=== PATIENT | male | born 1995 | race Hispanic/Latino ===

== ENCOUNTER 2022-04-07 18:51 | Emergency (ER) | payer OTHER ==
[~2022-04-07] VITALS: Ht 152.4 cm; Wt 81.6 kg
[2022-04-07 18:53] VITALS: BP 120/72
== END 2022-04-07 20:05 | disposition left against medical advice (07) ==
LOC: EDH 18:51
DX: R51.9 Headache, unspecified (principal); Z53.21 Procedure and treatment not carried out due to patient leaving prior to being seen by health care provider